=== PATIENT | male | born 1940 | race Caucasian/White ===

== ENCOUNTER → 2016-11-25 | Outpatient (CLI) | payer MEDICARE ==
[2016-04-26 11:00] VITALS: BP 160/84
[~2016-11-25] MED LIST: ALPR0.5T6 PO; ALPR1TAB6 PO; ATEN50TA PO; ATOR10TA PO; ATOR40TA59 PO; CYPR4TAB37 PO; DOCU100C28 PO; FENT1PAT17 TD; GABA-586 PO; HYDR12.58 PO; IOHEXOL 300 MG/ML 75 ML VIAL. IV ONE; LEXAPRO5 MG PO; METH-37 PO; NAPR220C4 PO; NAPR500T3 PO; NIFE10CA PO; PANT40TA5 PO; POLY2500 PO; SERT100T PO; TRAM50TA PO; VALP250C2 PO; atenolol; hydrochlorothiazide; lisinopril; remeron; trazodone; xanax
[2016-11-25 09:09] LABS: CREATININE 0.9 mg/dL (0.7-1.3); GFR 82.5
--- NOTE | 2016-11-25 15:19 | RAD ---
CTA of the abdomen and pelvis with contrast, 11/25/2016: History: Follow-up abdominal aortic aneurysm Multidetector CT imaging was performed following an IV bolus injection of iodinated contrast material. Multiplanar reconstructions were produced as well as 3-D volume rendered reconstructions of the aorta and its major branches. Comparison is made to a study from 04/09/2015. There is extensive calcific plaquing of the aorta and its branches. The celiac origin is widely patent. There is calcific plaquing with mild narrowing of the proximal superior mesenteric artery. There are single bilateral renal arteries with only mild plaquing and narrowing at their origins. There is a fusiform aneurysm of the infrarenal abdominal aorta. It currently measures 4.4 x 4.3 cm compared to measurements of 4.1 x 4.0 cm at the same level on the previous study. It measures approximately 6.5 cm in craniocaudad extent. There is a patent inferior mesenteric artery arising from the aneurysm. There is mild intraluminal plaque anteriorly. There is considerable calcific plaquing at the aortic bifurcation with mild narrowing of the proximal common iliac arteries. There is mild dilatation of the left common iliac artery which measures 2.4 cm in width compared to a measurement of 2.3 cm on the previous study. No high-grade iliac or common femoral arterial stenosis is evident. Incidental CT findings include the presence of colonic diverticulosis which is most extensive in the sigmoid region. There is mild nonspecific prostatic enlargement. IMPRESSION: 1. Mild interval increase in size of the infrarenal abdominal aortic aneurysm since 04/09/2015. 2. Small left common iliac artery aneurysm. PQRS Compliance Statement: One or more of the following individualized dose reduction techniques were utilized for this examination: 1. Automated exposure control 2. Adjustment of the mA and/or kV according to patient size 3. Use of iterative reconstruction technique
== END | disposition home or self-care (01) ==
LOC: CT 07:54
PROVIDERS: ATTEND Thoracic Surgery (Cardiothoracic Vascular Surgery)
DX: I71.4 Abdominal aortic aneurysm, without rupture (principal); I72.3 Aneurysm of iliac artery; N40.0 Benign prostatic hyperplasia without lower urinary tract symptoms; K57.30 Diverticulosis of large intestine without perforation or abscess without bleeding
CPT/HCPCS: 36415; 74174; 82565; 84520; Q9967

== ENCOUNTER → 2018-02-17 | Outpatient (CLI) | payer MEDICARE ==
[2016-04-26 11:00] VITALS: BP 160/84
[~2018-02-17] MED LIST changes: +CYPR4TAB31 PO; -CYPR4TAB37 PO; +NAPR-514 PO; -NAPR500T3 PO
[2018-02-17 11:42] LABS: CREATININE 0.8 mg/dL (0.7-1.3); GFR 94.2
--- NOTE | 2018-02-17 12:28 | RAD ---
CT ANGIOGRAPHY ABD AND PELVIS dated 02/17/2018 11:43 AM Indication: Abdominal aortic aneurysm.aaa, follow-up. Comparison: 04/09/2015. 11/25/2016. Technique: Contiguous axial imaging of the abdomen and pelvis performed after the intravenous administration of 75 cc Omnipaque 300. Study was performed as dedicated CTA with thin cut coronal and sagittal MIPS reconstructions and 3-D rotational reconstruction. One or more of the following individualized dose reduction techniques were utilized for this examination: 1. Automated exposure control 2. Adjustment of the mA and/or kV according to patient size 3. Use of iterative reconstruction technique Findings: There is a fusiform infrarenal abdominal aortic aneurysm that measures up to 4.4 cm transverse dimension. This measured 4.1 cm on the prior exam. No periaortic fluid collection. There is diffuse calcific and soft plaque throughout. Celiac artery and SMA are patent. There is mild narrowing of the SMA origin due to calcific plaque. Bilateral renal arteries are patent. Mild narrowing of the bilateral renal artery ostia due to calcific plaque. There is moderate to high-grade narrowing of the ROBERT origin. There is a aneurysm of the proximal left common iliac artery that measures up to 2.4 cm transverse versus 2.2 cm previously. Ectasia of the common iliac artery on the right measuring up to 1.4 cm, unchanged. Moderate narrowing of the left internal iliac artery origin. The right internal iliac artery origin is patent. Diffuse calcific plaquing of the mid to distal internal iliac arteries resulting in multifocal mild narrowing. The external iliac arteries are patent. Calcific plaque at the bilateral common femoral artery resulting in mild narrowing. Liver and spleen are homogeneous. Pancreas, adrenal glands and kidneys are unremarkable. No hydronephrosis. The gallbladder is surgically absent. Unopacified GI tract normal in caliber and contour. No focal bowel wall thickening. Scattered diverticula throughout the colon. No paracolonic inflammatory changes. Appendix normal in caliber. No ascites or lymphadenopathy. Images of pelvis show nondistended urinary bladder. Prostate gland moderately enlarged. No free pelvic fluid or pelvic lymphadenopathy. Bone windows show no acute findings. Multilevel spondylosis. Limited images of lung bases are grossly clear. Heart size mildly enlarged. Coronary artery calcifications. IMPRESSION: 1. Fusiform infrarenal abdominal aortic aneurysm measuring up to 4.4 cm transverse diameter. This is mildly increased in size from the prior exam. No evidence of leak. 2. 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 There is mild ectasia of the right common iliac artery that is unchanged. 3. Atherosclerotic plaquing resulting in areas of mild to moderate multifocal stenosis. Please see above report for details. 4. Diverticulosis. 5. Prostatomegaly. Electronically signed by: Brock Aleman MD (02/17/2018 12:25 PM) [id number]
== END | disposition home or self-care (01) ==
LOC: CT 11:11
PROVIDERS: ATTEND Thoracic Surgery (Cardiothoracic Vascular Surgery)
DX: I71.4 Abdominal aortic aneurysm, without rupture (principal); I72.3 Aneurysm of iliac artery; I25.10 Atherosclerotic heart disease of native coronary artery without angina pectoris; K57.30 Diverticulosis of large intestine without perforation or abscess without bleeding; I70.298 Other atherosclerosis of native arteries of extremities, other extremity; N40.0 Benign prostatic hyperplasia without lower urinary tract symptoms; M47.896 Other spondylosis, lumbar region; Z90.49 Acquired absence of other specified parts of digestive tract; Z87.891 Personal history of nicotine dependence
CPT/HCPCS: 36415; 74174; 82565; Q9967

== ENCOUNTER → 2019-03-23 | Outpatient (CLI) | payer MEDICARE ==
[2016-04-26 11:00] VITALS: BP 160/84
[~2019-03-23] MED LIST changes: -IOHEXOL 300 MG/ML 75 ML VIAL. IV ONE; +IOHEXOL 350 MG/ML 100 ML VIAL. IV ONE
[2019-03-23 09:36] LABS: CREATININE 0.9 mg/dL (0.7-1.3); GFR 81.8
[2019-03-23] MEDS: IOHEXOL 350 MG/ML 100 ML VIAL. IV ONE (10:00)
--- NOTE | 2019-03-23 11:04 | RAD ---
CT angiography of the abdomen and pelvis 03/23/2019 INDICATION: Abdominal aortic aneurysm. COMPARISON STUDY: CT angiography of the abdomen and pelvis February 17, 2018 TECHNIQUE: Multidetector CT imaging of the abdomen and pelvis was performed following the administration of IV contrast. 3-D reconstructions were created on an independent workstation and reviewed. FINDINGS: Vascular findings: Visualized portions of the inferior most thoracic aorta are unremarkable. Celiac artery is patent. Origin of the left gastric artery directly from the aorta cephalad to the celiac axis noted. Minimal nonflow limiting narrowing in the proximal most SMA noted. Renal arteries are patent bilaterally. Redemonstration of infrarenal, somewhat eccentric abdominal aortic aneurysm. Aneurysm measures 5.1 cm in maximal measured diameter on today's study. Inferior mesenteric artery arises from the aneurysmal portion of the aorta. When measured in a comparable fashion is possible minimal increase from 4.9 to 5.1 cm. Right common iliac is patent. Aneurysmal dilatation of the left common iliac artery is seen measuring up to 2.7 cm in diameter. Mild stenosis of the proximal left internal iliac artery is seen. Some ectasia of areas within the right internal iliac artery noted. Right bilateral external iliac arteries are patent. Bilateral common femoral arteries are patent. Proximal most profunda and SFA arteries appear grossly patent. Nonvascular findings: The gallbladder surgically absent. Liver, spleen, pancreas, adrenal glands, and kidneys demonstrate no acute abnormality. No bowel obstruction is seen. No acute inflammatory changes involving the bowel are identified. Distal colonic diverticulosis noted. Appendix is unremarkable. Bladder is grossly unremarkable. The prostate is enlarged and mildly heterogenous. No acute osseous changes are seen. IMPRESSION: 1. 5.1 cm infrarenal abdominal aortic aneurysm. Possible minimal increase in aneurysm diameter in the interim, when measured in a comparable fashion. Progressive slow increase in aneurysm diameter has been demonstrated over sequential CT studies. Vascular surgical consultation recommended. 2. Dilatation of the left common iliac artery up to 2.7 cm in diameter. 3. Prostamegaly with mildly heterogenous appearance of the prostate CT DOSING PQRS STATEMENT: One or more of the following individualized dose reduction techniques were utilized for this examination: 1. Automated exposure control 2. Adjustment of the mA and/or kV according to patient size 3. Use of iterative reconstruction technique Electronically signed by: Clinton Matos MD (03/23/2019 11:01 AM) [id number]
== END | disposition home or self-care (01) ==
LOC: CT 08:21
PROVIDERS: ATTEND Thoracic Surgery (Cardiothoracic Vascular Surgery)
DX: I71.4 Abdominal aortic aneurysm, without rupture (principal); K57.30 Diverticulosis of large intestine without perforation or abscess without bleeding; N40.0 Benign prostatic hyperplasia without lower urinary tract symptoms
CPT/HCPCS: 36415; 74174; 82565; Q9967

== ENCOUNTER → 2020-03-19 | Outpatient (CLI) | payer MEDICARE ==
[2016-04-26 11:00] VITALS: BP 160/84
[~2020-03-19] MED LIST changes: -PANT40TA5 PO; +PANT40TA6 PO
--- NOTE | 2020-03-19 10:31 | RAD ---
EXAM: CT Angiography Abdomen and Pelvis without Lower Extremity Run-off INDICATION: Reason: AAA / Spl. Instructions: / History: TECHNIQUE: CT angiography of the abdomen and pelvis was performed with intravenous contrast. Vascular 3D images were generated on a dedicated workstation and reviewed. All CT scans performed at this facility utilize dose optimization techniques as appropriate to the exam, including the following: Automated exposure control and adjustment of the mA and/or KV according to patient size (this includes techniques or standardized protocols for targeted exams where dose is indication/reason for exam). IV CONTRAST: Administered COMPARISON: CT angiogram abdomen and pelvis 03/23/2019 FINDINGS: VASCULAR FINDINGS: Abdominal Aorta and Branches: Celiac axis: No significant stenosis. There is normal variant aortic origin of the left gastric artery. SMA: Mild calcified plaque at the origin. Mild luminal narrowing in the origin, less than 50 percent. ROBERT: No significant stenosis. It arises from the midportion of the patient's known abdominal aortic aneurysm. Right renal vessels: No significant stenosis. Left renal vessels: Mild calcified plaque at the origin of the left renal artery. Less than 50 percent stenosis. Infrarenal aorta: Fusiform infrarenal abdominal aortic aneurysm measuring up to 5.2 x 5.1 cm AP by transverse diameter (image 61 of series 4), marginally increased from 4.9 x 4.8 cm at the comparable level (image 63 on series 5 of 03/23/2019 study). No periaortic soft tissue stranding or hematoma. The bilateral renal arteries arise at the same level in the abdominal aorta and the infrarenal abdominal aorta for a 1 cm length measures 2 cm in diameter. After that, there is gradual increase in diameter to 2.2 cm before the 7 cm long infrarenal abdominal aortic aneurysm arises. Landing zone overall measures 3 cm. The distal abdominal aorta beyond the aneurysm measures 1 cm and measures 1.9 x 1.8 cm AP by transverse diameter (image 74 series 4) Pelvic Vessels: R. Common iliac artery: Ectasia right common iliac artery to 1.7 cm. No flow-limiting stenosis. R. External iliac artery: No aneurysm or significant stenosis. Vessel measures 1.0 cm diameter. R. Internal iliac artery: No significant stenosis.Distal ectasia to 1.3 cm. L. Common iliac artery: Aneurysmal dilation to 2.7 cm (image 83 series 4) is unchanged from prior at the comparable level measuring outer wall diameter (image 88 of series 5 on the prior study). L. External iliac artery: No ectasia or significant stenosis. Vessel measures 1.0 cm diameter. L. Internal iliac artery: No significant stenosis. Mural calcification and mild ectasia to 1.4 cm (image 102 on series 4). Right Lower Extremity: R. Common femoral artery: No significant stenosis. Vessel measures 1.1 cm diameter. R. Profunda femoris artery: No significant stenosis in the visualized portion. Vessel measures 0.9 cm. R. SFA: No significant stenosis in the visualized portion. Vessel measures 0.9 cm. Left Lower Extremity: L. Common femoral artery: No significant stenosis. Vessel measures 1.3 cm diameter. L. Profunda femoris artery: No significant stenosis in the visualized portion. The vessel measures 0.8 cm. L. SFA: No significant stenosis in the visualized portion. The vessel measures 0.9 cm. NON VASCULAR FINDINGS: Cholecystectomy. Extensive colonic diverticulosis. Normal appendix. Enlarged prostate. IMPRESSION: Marginal increase in infrarenal abdominal aortic aneurysm now measuring 5.1 cm diameter. No evidence of leak or rupture. Electronically signed by: Yanet Perera MD (03/19/2020 10:28 AM) [id number]
== END ==
LOC: CT 07:40
PROVIDERS: ATTEND Thoracic Surgery (Cardiothoracic Vascular Surgery)
DX: K57.30 Diverticulosis of large intestine without perforation or abscess without bleeding (principal); N40.0 Benign prostatic hyperplasia without lower urinary tract symptoms; I71.4 Abdominal aortic aneurysm, without rupture; I70.0 Atherosclerosis of aorta; Z90.49 Acquired absence of other specified parts of digestive tract
CPT/HCPCS: 74174; Q9967